=== PATIENT | female | born 2000 | race Caucasian/White ===

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

== ENCOUNTER 2019-12-17 11:55 | Emergency (ER) | payer SELFPAY ==
[2019-12-17 12:11] VITALS: BP 137/64
[2019-12-17 13:35] LABS: GLUCOSE, URINE (UA) NEGATIVE (NEGATIVE); KETONES,URINE (UA) TRACE mg/dL (NEGATIVE); LEUKOCYTE ESTERASE, URINE SMALL (NEGATIVE); NITRITE,URINE NEGATIVE (NEGATIVE); OCCULT BLOOD,URINE NEGATIVE (NEGATIVE); PROTEIN,URINE NEGATIVE (NEGATIVE); UROBILINOGEN,URINE 0.2 (NORMAL) E.U./dL (NORMAL)
[2019-12-17 13:39] LABS: CLARITY,URINE CLEAR (CLEAR)
[2019-12-17 13:42] LABS: BILIRUBIN,URINE NEGATIVE (NEGATIVE); HCG UR QUAL POSITIVE; ICTOTEST,URINE NEGATIVE
[2019-12-17 13:54] LABS: BACTERIA,URINE Few /HPF (None Seen); MUCUS,URINE Moderate Strands; RBC,URINE 0-5 /HPF (0-5); SQUAMOUS EPITHELIAL CELL,UR MOD Squamous (<= Few)
--- NOTE | 2019-12-17 14:20 | ED Physician Documentation ---
History of Present Illness - Stated complaint Stated Complaint: VOMITING/STOMACH PX - Chief complaint Chief Complaint: General - History obtained from History obtained from: Patient (This is a G0P now 1 with LMP of November 10 who has had intermittent mild cramping at night with nausea for the last couple of days. She had a couple of positive tests at home. Denies bleeding.) Review of Systems Constitutional: denies: Fever, Chills, Myalgias Throat: denies: Dental pain / toothache, Sore throat Cardiac: denies: Chest pain / pressure, Palpitations Respiratory: denies: Dyspnea, Cough GI: reports: Abdominal Pain PD PAST MEDICAL HISTORY - Past Medical History Past Medical History: No - Past Surgical History Past Surgical History: Yes HEENT: Tonsil/Adenoidectomy - Present Medications Home Medications: Ambulatory Orders Medication Instructions Recorded Confirmed No122/Iron/Folic Acid 1 each PO DAILY #90 tablet 12/17/19 [ Multi Tablet] - Allergies Allergies/Adverse Reactions: Allergies Allergy/AdvReac Type Severity Reaction Status Date / Time No Known Drug Allergies Allergy Verified 12/17/19 12:07 - Social History Does the pt smoke?: Yes Smoking Status: Current every day smoker Does the pt drink ETOH?: Yes Substance Use and Type: Marijuana - Immunizations Immunizations are current?: Yes PD ED PE NORMAL - Vitals Vital signs reviewed: Yes - General General: Alert and oriented X 3, No acute distress - HEENT HEENT: PERRL, EOMI - Abdomen Abdomen: Normal bowel sounds, Soft, Non tender - Female Female : Other (Bedside ultrasound is without obvious IUP, no free fluid.) - Neuro Neuro: Alert and oriented X 3, Normal speech Results - Vitals Vitals: Vital Signs - 24 hr 12/17/19 12:07 Temperature 36.7 C Heart Rate 77 Respiratory 15 Rate Blood Pressure 137/64 H O2 Saturation 98 Oxygen O2 Source Room air - Labs Labs: Laboratory Tests 12/17/19 13:17 Urine Color YELLOW Urine Clarity CLEAR Urine pH 6.0 Ur Specific [place] >=1.030 H Urine Protein NEGATIVE Urine Glucose (UA) NEGATIVE Urine Ketones TRACE Urine Occult Blood NEGATIVE Urine Nitrite NEGATIVE Urine Bilirubin NEGATIVE Urine Urobilinogen 0.2 (NORMAL) Ur Leukocyte Esterase SMALL H Urine RBC 0-5 Urine WBC 0-3 Ur Squamous Epith Cells MOD Squamous H Urine Bacteria Few Urine Mucus Moderate Strands Ur Microscopic Review INDICATED Urine Culture Comments NOT INDICATED Urine HCG, Qual POSITIVE PD MEDICAL DECISION MAKING - ED course ED course: 19-year-old woman presents to the emergency department mostly wondering if she is . She is had some mild cramping but nothing I would consider consistent with an ectopic. She was given advice on dietary changes for nausea and follow-up with OB and signs and symptoms that would necessitate an urgent reevaluation. Departure - Departure Disposition: 01 Home, Self Care Clinical Impression: Qualifiers: Weeks of gestation: less than 8 weeks Qualified Code(s): Z3A.01 - Less than 8 weeks gestation of Condition: Good Record reviewed to determine appropriate education?: Yes Instructions: ED Care Prescriptions: No122/Iron/Folic Acid [ Multi Tablet] 1 each PO DAILY #90 tablet Comments: If you develop severe cramping, bleeding, or other concerns please return for reevaluation.
== END 2019-12-17 14:24 | disposition home or self-care (01) ==
LOC: ED 11:55
DX: O21.0 Mild hyperemesis gravidarum (principal); O99.331 Smoking (tobacco) complicating pregnancy, first trimester; F17.200 Nicotine dependence, unspecified, uncomplicated; Z3A.01 Less than 8 weeks gestation of pregnancy
CPT/HCPCS: 81001; 81003; 81025; 87086; 99283

== ENCOUNTER 2020-01-05 12:22 | Outpatient (CLI) | payer OTHER ==
[2020-01-05 15:00] LABS: BILIRUBIN,URINE NEGATIVE (NEGATIVE); GLUCOSE, URINE (UA) NEGATIVE (NEGATIVE); KETONES,URINE (UA) NEGATIVE (NEGATIVE); LEUKOCYTE ESTERASE, URINE TRACE (NEGATIVE); NITRITE,URINE NEGATIVE (NEGATIVE); OCCULT BLOOD,URINE NEGATIVE (NEGATIVE); PROTEIN,URINE NEGATIVE (NEGATIVE); UROBILINOGEN,URINE 0.2 (NORMAL) E.U./dL (NORMAL)
[2020-01-05 15:08] LABS: CLARITY,URINE CLEAR (CLEAR)
[2020-01-05 15:29] LABS: AMORPHOUS SEDIMENT,UR Marked /LPF; BACTERIA,URINE Rare /HPF (None Seen); RBC,URINE 0-5 /HPF (0-5); SQUAMOUS EPITHELIAL CELL,UR FEW Squamous (<= Few)
[2020-01-05 20:52] LABS: TRICHOMONAS VAGINALIS DNA NEGATIVE (NEGATIVE)
== END 2020-01-05 23:59 | disposition home or self-care (01) ==
LOC: LAB.R 12:22
PROVIDERS: ATTEND Registered Nurse
DX: Z34.90 Encounter for supervision of normal pregnancy, unspecified, unspecified trimester (principal)
CPT/HCPCS: 81001; 81003; 87086; 87491; 87591; 87661

== ENCOUNTER 2020-01-07 14:13 | Emergency (ER) | payer OTHER ==
[2020-01-07 15:12] LABS: BILIRUBIN,URINE NEGATIVE (NEGATIVE); GLUCOSE, URINE (UA) NEGATIVE (NEGATIVE); KETONES,URINE (UA) TRACE mg/dL (NEGATIVE); LEUKOCYTE ESTERASE, URINE LARGE (NEGATIVE); NITRITE,URINE NEGATIVE (NEGATIVE); OCCULT BLOOD,URINE NEGATIVE (NEGATIVE); PH,URINE 5.5 PH (5.0-7.5); PROTEIN,URINE NEGATIVE (NEGATIVE); UROBILINOGEN,URINE 0.2 (NORMAL) E.U./dL (NORMAL)
[2020-01-07 15:13] LABS: CLARITY,URINE HAZY (CLEAR)
[2020-01-07 15:13] LABS: BASOPHILS % (AUTO) 0.4 %; EOSINOPHILS % (AUTO) 0.4 %; HGB - HEMOGLOBIN 11.8 g/dL (12.0-16.0); LYMPHOCYTES # (AUTO) 1.7 10^3/uL (1.5-3.5); LYMPHOCYTES % (AUTO) 14.8 %; MEAN CORPUSCULAR HEMOGLOBIN 29.7 pg (27.0-31.0); MEAN CORPUSCULAR HGB CONC 33.4 g/dL (32.0-36.0); MEAN CORPUSCULAR VOLUME 88.9 fL (81.0-99.0); MEAN PLATELET VOLUME 10.3 fL (7.9-10.8); MONOCYTES # (AUTO) 0.9 10^3/uL (0.0-1.0); MONOCYTES % (AUTO) 8.1 %; NEUTROPHILS # (AUTO) 8.6 10^3/uL (1.5-6.6); NEUTROPHILS % (AUTO) 75.9 %; PLT - PLATELET COUNT 357 10^3/uL (130-450); RED BLOOD COUNT 3.97 10^6/uL (4.20-5.40); RED CELL DISTRIBUTION WIDTH 15.1 % (12.0-15.0); WHITE BLOOD COUNT 11.3 x10^3/uL (4.8-10.8)
[2020-01-07 15:26] LABS: ALBUMIN 4.2 g/dL (3.2-5.5); ALBUMIN/GLOBULIN RATIO 1.2 (1.0-2.2); BILIRUBIN,TOTAL 0.8 mg/dL (0.2-1.0); CALCIUM 9.7 mg/dL (8.5-10.3); CREATININE 0.6 mg/dL (0.4-1.0); TOTAL PROTEIN 7.8 g/dL (6.7-8.2)
[2020-01-07 15:28] LABS: AMORPHOUS SEDIMENT,UR Few /LPF; BACTERIA,URINE Moderate /HPF (None Seen); RBC,URINE 0-5 /HPF (0-5); SQUAMOUS EPITHELIAL CELL,UR FEW Squamous (<= Few)
--- NOTE | 2020-01-07 15:36 | ED Physician Documentation ---
History of Present Illness - Stated complaint Stated Complaint: FEMALE /8WK OB - Chief complaint Chief Complaint: Abd Pain - History obtained from History obtained from: Patient - History of Present Illness Timing: How many days ago (3) Pain level max: 3 Pain level now: 2 - Additonal information Additional information: 19-year-old female, 1 para 0 presents to the emergency department stating that she is approximately 2 weeks . She states she started having vaginal spotting yesterday and today. Along with abdominal cramping. Nothing makes it better or worse. No vaginal discharge other than the bleeding. No fevers. No cough. Review of Systems Ten Systems: 10 systems reviewed and negative Constitutional: denies: Fever, Chills Throat: denies: Sore throat Cardiac: denies: Chest pain / pressure Respiratory: denies: Cough GI: denies: Vomiting, Diarrhea Skin: denies: Rash Musculoskeletal: denies: Neck pain, Back pain Neurologic: denies: Headache PD PAST MEDICAL HISTORY - Past Medical History Past Medical History: No - Past Surgical History Past Surgical History: Yes HEENT: Tonsil/Adenoidectomy - Present Medications Home Medications: Ambulatory Orders Medication Instructions Recorded Confirmed No122/Iron/Folic Acid 1 each PO DAILY #90 tablet 12/17/19 01/07/20 [ Multi Tablet] Nitrofurantoin Monohyd/M-Cryst 100 mg PO BID #10 capsule 01/07/20 [Macrobid 100 mg Capsule] - Allergies Allergies/Adverse Reactions: Allergies Allergy/AdvReac Type Severity Reaction Status Date / Time No Known Drug Allergies Allergy Verified 01/07/20 14:31 - Living Situation Living Situation: reports: With family Living Arrangement: reports: Shelter - Social History Does the pt smoke?: Yes Smoking Status: Current every day smoker Does the pt drink ETOH?: Yes - Immunizations Immunizations are current?: Yes PD ED PE NORMAL - Vitals Vital signs reviewed: Yes - General General: Alert and oriented X 3, No acute distress, Well developed/nourished - HEENT HEENT: PERRL, Moist mucous membranes - Neck Neck: Supple, no meningeal sign - Cardiac Cardiac: RRR, Strong equal pulses - Respiratory Respiratory: No respiratory distress, Clear bilaterally - Abdomen Abdomen: Soft, Non tender, Non distended - Female Female : Pt declined - Derm Derm: Warm and dry, No rash - Extremities Extremities: No edema - Neuro Neuro: Alert and oriented X 3 - Psych Psych: Normal mood, Normal affect Results - Vitals Vitals: Vital Signs - 24 hr 01/07/20 01/07/20 14:18 17:05 Temperature 36.8 C Heart Rate 64 72 Respiratory 18 18 Rate Blood Pressure 136/83 H 116/58 L O2 Saturation 99 99 Oxygen O2 Source Room air - Labs Labs: Laboratory Tests 01/07/20 01/07/20 01/07/20 14:40 14:55 14:55 WBC 11.3 H RBC 3.97 L Hgb 11.8 L Hct 35.3 L MCV 88.9 MCH 29.7 MCHC 33.4 RDW 15.1 H Plt Count 357 MPV 10.3 Neut # (Auto) 8.6 H Lymph # (Auto) 1.7 [place] # (Auto) 0.9 Eos # (Auto) 0.0 Baso # (Auto) 0.0 Absolute Nucleated RBC 0.00 Nucleated RBC % 0.0 Sodium 135 Potassium 3.9 Chloride 101 Carbon Dioxide 24 Anion Gap 10.0 BUN 11 Creatinine 0.6 Estimated GFR (MDRD) 127 Glucose 82 Calcium 9.7 Total Bilirubin 0.8 AST 14 ALT 12 Alkaline Phosphatase 45 Total Protein 7.8 Albumin 4.2 Globulin 3.6 Albumin/Globulin Ratio 1.2 Lipase 27 HCG, Quant Urine Color YELLOW Urine Clarity HAZY Urine pH 5.5 Ur Specific [place] 1.020 Urine Protein NEGATIVE Urine Glucose (UA) NEGATIVE Urine Ketones TRACE Urine Occult Blood NEGATIVE Urine Nitrite NEGATIVE Urine Bilirubin NEGATIVE Urine Urobilinogen 0.2 (NORMAL) Ur Leukocyte Esterase LARGE H Urine RBC 0-5 Urine WBC 6-10 H Ur Squamous Epith Cells FEW Squamous Amorphous Sediment Few Urine Bacteria Moderate H Ur Microscopic Review INDICATED Urine Culture Comments INDICATED Blood Type 01/07/20 01/07/20 14:55 14:55 WBC RBC Hgb Hct MCV MCH MCHC RDW Plt Count MPV Neut # (Auto) Lymph # (Auto) [place] # (Auto) Eos # (Auto) Baso # (Auto) Absolute Nucleated RBC Nucleated RBC % Sodium Potassium Chloride Carbon Dioxide Anion Gap BUN Creatinine Estimated GFR (MDRD) Glucose Calcium Total Bilirubin AST ALT Alkaline Phosphatase Total Protein Albumin Globulin Albumin/Globulin Ratio Lipase HCG, Quant 359051.00 Urine Color Urine Clarity Urine pH Ur Specific [place] Urine Protein Urine Glucose (UA) Urine Ketones Urine Occult Blood Urine Nitrite Urine Bilirubin Urine Urobilinogen Ur Leukocyte Esterase Urine RBC Urine WBC Ur Squamous Epith Cells Amorphous Sediment Urine Bacteria Ur Microscopic Review Urine Culture Comments Blood Type A POSITIVE - Rads (name of study) OB ultrasound Radiology: Prelim report reviewed, EMP read contemporaneously, See rad report (1. Single viable intrauterine at EGA 8 weeks 2 days with LEYLA 08/16/2020 based on crown-rump length ) PD MEDICAL DECISION MAKING - ED course Complexity details: reviewed results, re-evaluated patient, considered differential, d/w patient ED course: Patient with vaginal bleeding in early . Single viable IUP visible on ultrasound. We will treat for UTI. We will have her follow-up with OB for further care. No evidence of ectopic. Patient counseled regarding signs and symptoms for which I believe and urgent re-evaluation would be necessary. Patient with good understanding of and agreement to plan and is comfortable going home at this time This document was made in part using voice recognition software. While efforts are made to proofread this document, sound alike and grammatical errors may occur. Departure - Departure Disposition: 01 Home, Self Care Clinical Impression: Vaginal bleeding during Urinary tract infection Qualifiers: Urinary tract infection type: acute cystitis Hematuria presence: without hematuria Qualified Code(s): N30.00 - Acute cystitis without hematuria Condition: Good Instructions: ED Miscarriage Poss, ED UTI Cystitis Female Follow-Up: your,doctor in 3 days for repeat HCG. [Other] Prescriptions: Nitrofurantoin Monohyd/M-Cryst [Macrobid 100 mg Capsule] 100 mg PO BID #10 capsule Comments: Follow-up with your doctor next week for further care and a repeat hCG. Her hCG is approximately 169,000 today. Your ultrasound shows a live intrauterine with a good heartbeat. Take all antibiotics until gone for your UTI. Discharge Date/Time: 01/07/20 17:05
--- NOTE | 2020-01-07 16:29 | Ultrasound Report ---
Reason: 8 weeks EGA, VB Procedure Date: 01/07/2020 Accession Number: [id number] / [id number] Procedure: US - OB First Trimester CPT Code: Final Report FULL RESULT: EXAM: FIRST TRIMESTER OBSTETRIC ULTRASOUND (Less than 11 weeks) EXAM DATE: 01/07/2020 03:41 PM. CLINICAL HISTORY: 8 weeks EGA, VB. LMP: Unknown. COMPARISONS: None. TECHNIQUE: Transabdominal and transvaginal ultrasound examination with static image documentation. CLINICAL DATES: Unknown ASSESSMENT: Gestational Sac: Single intrauterine. Mean gestational sac diameter: 29 mm = 8 weeks 0 days. Embryo: CRL (crown-rump length) 18 mm = 8 weeks 2 days. Cardiac activity: 179 beats per minute. Yolk sac: 4 mm. Amniotic fluid: Not accurately assessed at this gestational age. Early placenta: Not visible at this gestational age. Other: No perigestational fluid collection demonstrated. MATERNAL STRUCTURES: Uterus: Anteverted . Unremarkable. Cervix: Closed. Right Ovary/Adnexa: The ovary measures 3.4 x 1.3 x 2.9 cm, volume 6.7 cc. 1.7 x 1.4 x 2.3 cm corpus luteal cyst. Left Ovary/Adnexa: The ovary measures 2.4 x 2.7 x 2.6 cm, volume 8.5 cc. 1.2 x 1 x 1.1 cm cyst Free Fluid: None. Other: None. IMPRESSION: 1. Single viable intrauterine at EGA 8 weeks 2 days with LEYLA 08/16/2020 based on crown-rump length RADIA
[2020-01-07] MEDS ORDERED: NITROFURANTOIN MACRO 100 MG CAPSULE PO STA (16:34)
[2020-01-07 17:06] VITALS: BP 116/58
== END 2020-01-07 17:05 | disposition home or self-care (01) ==
LOC: ED 14:13
DX: O20.9 Hemorrhage in early pregnancy, unspecified (principal); O23.11 Infections of bladder in pregnancy, first trimester; O99.331 Smoking (tobacco) complicating pregnancy, first trimester; Z3A.08 8 weeks gestation of pregnancy
CPT/HCPCS: 36415; 76801; 80053; 81001; 83690; 84702; 85025; 86900; 86901; 87086; 99284; A9270; 81003

== ENCOUNTER 2020-01-12 13:25 | Outpatient (CLI) | payer OTHER ==
[2020-01-12 14:43] LABS: HCG,QUALITATIVE BLOOD POSITIVE
== END 2020-01-12 23:59 | disposition home or self-care (01) ==
LOC: LAB.R 13:25
PROVIDERS: ATTEND Registered Nurse
DX: Z34.90 Encounter for supervision of normal pregnancy, unspecified, unspecified trimester (principal)
CPT/HCPCS: 84702; 84703

== ENCOUNTER 2020-01-16 09:30 | Outpatient (CLI) | payer OTHER | END 2020-01-16 23:59 | disposition home or self-care (01) | LOC: LAB.R 09:30 | PROVIDERS: ATTEND Registered Nurse | DX: O26.859 Spotting complicating pregnancy, unspecified trimester (principal) | CPT/HCPCS: 84702 ==

== ENCOUNTER 2020-02-21 13:40 | Emergency (ER) | payer MEDICAID ==
[2020-02-21 14:08] LABS: BASOPHILS % (AUTO) 0.2 %; EOSINOPHILS % (AUTO) 0.3 %; HGB - HEMOGLOBIN 11.3 g/dL (12.0-16.0); LYMPHOCYTES # (AUTO) 1.5 10^3/uL (1.5-3.5); LYMPHOCYTES % (AUTO) 13.1 %; MEAN CORPUSCULAR HEMOGLOBIN 30.5 pg (27.0-31.0); MEAN CORPUSCULAR HGB CONC 33.6 g/dL (32.0-36.0); MEAN CORPUSCULAR VOLUME 90.8 fL (81.0-99.0); MONOCYTES # (AUTO) 0.8 10^3/uL (0.0-1.0); MONOCYTES % (AUTO) 6.7 %; NEUTROPHILS # (AUTO) 9.2 10^3/uL (1.5-6.6); NEUTROPHILS % (AUTO) 79.3 %; PLT - PLATELET COUNT 309 10^3/uL (130-450); RED CELL DISTRIBUTION WIDTH 14.7 % (12.0-15.0); WHITE BLOOD COUNT 11.7 x10^3/uL (4.8-10.8)
[2020-02-21 14:26] LABS: ALBUMIN 3.7 g/dL (3.2-5.5); ALBUMIN/GLOBULIN RATIO 1.1 (1.0-2.2); BILIRUBIN,TOTAL 0.5 mg/dL (0.2-1.0); CALCIUM 9.4 mg/dL (8.5-10.3); CREATININE 0.5 mg/dL (0.4-1.0); TOTAL PROTEIN 7.1 g/dL (6.7-8.2)
[2020-02-21 15:11] LABS: BILIRUBIN,URINE NEGATIVE (NEGATIVE); GLUCOSE, URINE (UA) NEGATIVE (NEGATIVE); KETONES,URINE (UA) NEGATIVE (NEGATIVE); LEUKOCYTE ESTERASE, URINE SMALL (NEGATIVE); NITRITE,URINE NEGATIVE (NEGATIVE); OCCULT BLOOD,URINE NEGATIVE (NEGATIVE); PROTEIN,URINE NEGATIVE (NEGATIVE); UROBILINOGEN,URINE 0.2 (NORMAL) E.U./dL (NORMAL)
[2020-02-21 15:29] LABS: CLARITY,URINE CLEAR (CLEAR)
[2020-02-21 15:30] LABS: AMORPHOUS SEDIMENT,UR Marked /LPF; BACTERIA,URINE None Seen /HPF (None Seen); RBC,URINE None Seen /HPF (0-5); SQUAMOUS EPITHELIAL CELL,UR MOD Squamous (<= Few)
--- NOTE | 2020-02-21 16:36 | Ultrasound Report ---
PROCEDURE: OB Limited INDICATIONS: pelvic pain, viability, 14 weeks OUTSIDE/PRIOR DATING DATA: Last menstrual period (LMP): Not known. LMP-based estimated date of delivery (LEYLA): Not applicable. First dating scan (date and location): 01/07/2020. Estimated date of delivery (LEYLA) from first dating scan: 08/16/2020. TECHNIQUE: Real-time scanning was performed of the fetus, with image documentation. COMPARISON: None. FINDINGS: A single living intrauterine gestation is present. Presentation: Cephalic Placenta: Placental position is posterior, without previa. Amniotic fluid index: 9.1 cm, 5-24 cm normal. heart rate: 152 beats per minutes. Maternal cervical canal: 4.0 cm long; normal length is 2.5 cm or more. Estimated gestational age from initial scan: 14 weeks 5 days. Estimated gestational age from present scan: 15 weeks 1 day. Biparietal diameter: 15 weeks 4 days Head circumference 15 weeks 1 day Abdominal circumference 15 weeks 2 days Femur length 14 weeks 4 days IMPRESSION: 1. Single living intrauterine with appropriate interval growth. 2. Normal amniotic fluid index. Reviewed by: Ro Galeana MD, PhD on 02/21/2020 4:35 PM PDT Approved by: Ro Galenaa MD, PhD on 02/21/2020 4:35 PM PDT Station ID: [id number]
[2020-02-21 16:57] VITALS: BP 102/59
[2020-02-21 22:15] LABS: TRICHOMONAS VAGINALIS DNA NEGATIVE (NEGATIVE)
== END 2020-02-21 17:42 | disposition left against medical advice (07) ==
LOC: ED 13:40
DX: Z53.21 Procedure and treatment not carried out due to patient leaving prior to being seen by health care provider (principal)
CPT/HCPCS: 36415; 76815; 80053; 81001; 83690; 84702; 85025; 87086; 87491; 87591; 87661; 87801

== ENCOUNTER 2020-04-04 07:00 | Outpatient (CLI) | payer MEDICAID ==
[2020-04-04 15:47] LABS: MUDS CUTOFF CONCENTRATIONS CUTOFF CONC BELOW:
[2020-04-04 16:21] LABS: AMPHETAMINE SCREEN,URINE NEGATIVE (NEGATIVE); BENZODIAZEPINES SCREEN, URINE NEGATIVE (NEGATIVE); COCAINE SCREEN URINE NEGATIVE (NEGATIVE); METHADONE SCREEN, URINE NEGATIVE (NEGATIVE); METHAMPHETAMINES SCREEN, URINE NEGATIVE (NEGATIVE); OPIATE SCREEN, URINE NEGATIVE (NEGATIVE); OXYCODONE SCREEN, URINE NEGATIVE (NEGATIVE); PROPOXYPHENE SCREEN, URINE NEGATIVE (NEGATIVE); TRICYCLIC ANTIDEPRESSANT,URINE NEGATIVE (NEGATIVE)
== END 2020-04-04 23:59 | disposition home or self-care (01) ==
LOC: LAB.R 07:00
PROVIDERS: ATTEND Advanced Practice Midwife
DX: Z36.89 Encounter for other specified antenatal screening (principal); O09.70 Supervision of high risk pregnancy due to social problems, unspecified trimester
CPT/HCPCS: 36415; 80306; 81599; 85025; 86592; 86762; 86787; 86803; 86850; 86900; 86901; 87340; 87389

== ENCOUNTER 2020-04-04 10:54 | Outpatient (CLI) | payer MEDICAID ==
[2020-04-04 11:16] LABS: BASOPHILS % (AUTO) 0.2 %; EOSINOPHILS % (AUTO) 0.4 %; LYMPHOCYTES # (AUTO) 1.5 10^3/uL (1.5-3.5); LYMPHOCYTES % (AUTO) 15.1 %; MEAN CORPUSCULAR HEMOGLOBIN 30.7 pg (27.0-31.0); MEAN CORPUSCULAR HGB CONC 33.2 g/dL (32.0-36.0); MEAN CORPUSCULAR VOLUME 92.3 fL (81.0-99.0); MEAN PLATELET VOLUME 10.5 fL (7.9-10.8); MONOCYTES # (AUTO) 0.6 10^3/uL (0.0-1.0); MONOCYTES % (AUTO) 5.7 %; NEUTROPHILS # (AUTO) 7.7 10^3/uL (1.5-6.6); NEUTROPHILS % (AUTO) 78.1 %; PLT - PLATELET COUNT 294 10^3/uL (130-450); RED BLOOD COUNT 3.26 10^6/uL (4.20-5.40); RED CELL DISTRIBUTION WIDTH 13.3 % (12.0-15.0); WHITE BLOOD COUNT 9.9 x10^3/uL (4.8-10.8)
[2020-04-05 09:21] LABS: HIV AG/AB 4TH GEN NON-REACTIVE (NON-REACTIVE)
[2020-04-05 14:51] LABS: HEPATITIS B SURFACE ANTIGEN NON-REACTIVE (NON-REACTIVE); HEPATITIS C ANTIBODY NON-REACTIVE (NON-REACTIVE)
== END 2020-04-04 10:55 | disposition home or self-care (01) ==
LOC: LAB 10:54
PROVIDERS: ATTEND Advanced Practice Midwife
DX: Z36.89 Encounter for other specified antenatal screening (principal); O09.70 Supervision of high risk pregnancy due to social problems, unspecified trimester
CPT/HCPCS: 36415; 81599; 85025; 86762; 86787; 86803; 86850; 86900; 86901; 87340; 87389

== ENCOUNTER 2020-06-28 08:00 | Outpatient (CLI) | payer MEDICAID ==
[2020-06-28 12:15] LABS: MEAN CORPUSCULAR HEMOGLOBIN 29.9 pg (27.0-31.0); MEAN CORPUSCULAR HGB CONC 33.1 g/dL (32.0-36.0); MEAN CORPUSCULAR VOLUME 90.3 fL (81.0-99.0); MEAN PLATELET VOLUME 10.2 fL (7.9-10.8); RED BLOOD COUNT 2.68 10^6/uL (4.20-5.40); RED CELL DISTRIBUTION WIDTH 14.6 % (12.0-15.0); WHITE BLOOD COUNT 7.2 x10^3/uL (4.8-10.8)
== END 2020-06-28 23:59 | disposition home or self-care (01) ==
LOC: LAB 08:00
PROVIDERS: ATTEND Nurse Practitioner Obstetrics & Gynecology
DX: Z36.89 Encounter for other specified antenatal screening (principal)
CPT/HCPCS: 36415; 82950; 85027

== ENCOUNTER 2020-07-18 09:20 | Outpatient (CLI) | payer MEDICAID ==
[2020-07-18] MEDS ORDERED: FERRIC GLUCONATE 125 MG in SODIUM CHLORIDE 0.9% 100ML 100 ML IV SCH (09:29)
[2020-07-18 09:48] VITALS: BP 113/60
== END 2020-07-18 11:20 | disposition home or self-care (01) ==
LOC: WFO 09:20 → FBP 09:23 → WFO 11:20
PROVIDERS: ATTEND Nurse Practitioner Obstetrics & Gynecology
DX: O99.019 Anemia complicating pregnancy, unspecified trimester (principal); D64.9 Anemia, unspecified; Z3A.00 Weeks of gestation of pregnancy not specified
CPT/HCPCS: 96374; J2916

== ENCOUNTER 2020-07-25 11:30 | Outpatient (CLI) | payer MEDICAID ==
[2020-07-25 23:01] LABS: TRICHOMONAS VAGINALIS DNA NEGATIVE (NEGATIVE)
== END 2020-07-25 23:59 | disposition home or self-care (01) ==
LOC: LAB.R 11:30
PROVIDERS: ATTEND Obstetrics & Gynecology
DX: O09.70 Supervision of high risk pregnancy due to social problems, unspecified trimester (principal); Z3A.00 Weeks of gestation of pregnancy not specified
CPT/HCPCS: 87491; 87591; 87661; 87797

== ENCOUNTER 2020-07-25 11:38 | Outpatient (CLI) | payer MEDICAID ==
[2020-07-25 12:17] VITALS: BP 116/71
[2020-07-25 12:21] LABS: BASOPHILS % (AUTO) 0.5 %; EOSINOPHILS % (AUTO) 0.6 %; HGB - HEMOGLOBIN 8.6 g/dL (12.0-16.0); LYMPHOCYTES # (AUTO) 1.3 10^3/uL (1.5-3.5); LYMPHOCYTES % (AUTO) 20.8 %; MEAN CORPUSCULAR HEMOGLOBIN 27.3 pg (27.0-31.0); MEAN CORPUSCULAR HGB CONC 31.6 g/dL (32.0-36.0); MEAN CORPUSCULAR VOLUME 86.3 fL (81.0-99.0); MEAN PLATELET VOLUME 11.4 fL (7.9-10.8); MONOCYTES # (AUTO) 0.7 10^3/uL (0.0-1.0); NEUTROPHILS # (AUTO) 4.1 10^3/uL (1.5-6.6); NEUTROPHILS % (AUTO) 66.6 %; PLT - PLATELET COUNT 266 10^3/uL (130-450); RED BLOOD COUNT 3.15 10^6/uL (4.20-5.40); RED CELL DISTRIBUTION WIDTH 16.1 % (12.0-15.0); WHITE BLOOD COUNT 6.2 x10^3/uL (4.8-10.8)
[2020-07-25] MEDS ORDERED: FERRIC GLUCONATE 125 MG in SODIUM CHLORIDE 0.9% 100ML 100 ML IV ONE (12:30)
--- NOTE | 2020-07-25 14:52 | Labor Flowsheet ---
Labor Flowsheet Datetime Report Generated by CPN: 07/25/2020 14:51 Datetime: 07/25/2020 12:15 VITAL SIGNS NBP Sys/Rosio/Mean (mmHg): 134 : 81 : 94 Pulse: 96
== END 2020-07-25 13:45 | disposition home or self-care (01) ==
LOC: WFO 11:38 → FBP 11:43 → WFO 13:45
PROVIDERS: ATTEND Obstetrics & Gynecology
DX: O99.013 Anemia complicating pregnancy, third trimester (principal); D64.9 Anemia, unspecified; Z3A.00 Weeks of gestation of pregnancy not specified
CPT/HCPCS: 85025; 96374; J2916

== ENCOUNTER 2020-08-01 09:43 | Outpatient (CLI) | payer MEDICAID ==
[2020-08-01] MEDS ORDERED: FERRIC GLUCONATE 125 MG in SODIUM CHLORIDE 0.9% 100ML 100 ML IV ONE (10:30)
[2020-08-01 11:51] LABS: BASOPHILS % (AUTO) 0.3 %; EOSINOPHILS # (AUTO) 0.1 10^3/uL (0.0-0.7); EOSINOPHILS % (AUTO) 0.8 %; HGB - HEMOGLOBIN 8.3 g/dL (12.0-16.0); LYMPHOCYTES # (AUTO) 1.3 10^3/uL (1.5-3.5); LYMPHOCYTES % (AUTO) 21.8 %; MEAN CORPUSCULAR HEMOGLOBIN 28.2 pg (27.0-31.0); MEAN CORPUSCULAR HGB CONC 31.3 g/dL (32.0-36.0); MEAN CORPUSCULAR VOLUME 90.1 fL (81.0-99.0); MEAN PLATELET VOLUME 11.3 fL (7.9-10.8); MONOCYTES # (AUTO) 0.7 10^3/uL (0.0-1.0); MONOCYTES % (AUTO) 10.8 %; NEUTROPHILS % (AUTO) 65.6 %; PLT - PLATELET COUNT 178 10^3/uL (130-450); RED BLOOD COUNT 2.94 10^6/uL (4.20-5.40); RED CELL DISTRIBUTION WIDTH 17.2 % (12.0-15.0)
[2020-08-01 12:38] VITALS: BP 109/65
== END 2020-08-01 12:00 | disposition home or self-care (01) ==
LOC: WFO 09:43 → FBP 09:44 → WFO 12:00
PROVIDERS: ATTEND Advanced Practice Midwife
DX: O99.019 Anemia complicating pregnancy, unspecified trimester (principal); D64.9 Anemia, unspecified; Z3A.00 Weeks of gestation of pregnancy not specified
CPT/HCPCS: 36415; 85025; 96365; J2916

== ENCOUNTER 2020-08-08 10:53 | Outpatient (CLI) | payer MEDICAID ==
[2020-08-08 11:28] VITALS: BP 104/58
[2020-08-08] MEDS ORDERED: FERRIC GLUCONATE 125 MG in SODIUM CHLORIDE 0.9% 100ML 100 ML IV SCH (12:00)
== END 2020-08-08 12:58 | disposition home or self-care (01) ==
LOC: WFO 10:53 → FBP 10:54 → WFO 12:58
PROVIDERS: ATTEND Nurse Practitioner Obstetrics & Gynecology
DX: O99.019 Anemia complicating pregnancy, unspecified trimester (principal); D64.9 Anemia, unspecified; Z3A.00 Weeks of gestation of pregnancy not specified
CPT/HCPCS: 96365; J2916

== ENCOUNTER 2020-08-15 12:24 | Outpatient (CLI) | payer MEDICAID ==
[2020-08-15 12:46] VITALS: BP 132/82
[2020-08-15] MEDS ORDERED: FERRIC GLUCONATE 125 MG in SODIUM CHLORIDE 0.9% 100ML 100 ML IV ONE (13:00)
--- OUTSIDE RECORDS SUMMARY | 2020-08-23 00:16 | EXTERNAL MEDICAL SUMMARY RPT | Continuity of Care Document ---
:2000 Demographics Phone Unavailable Preferred Language Latvian Marital Status Unknown Latter Day Affiliation Unknown Race Unknown Ethnic Group Unknown Author Organization [facility] Address [address] [place] [address] Phone Care Team Providers Name Role Phone I&C TECHNICIAN Unavailable Unavailable Problems date description facility 2020-02-21 13:40 PROC/TRTMT NOT CRD OUT D/T PT [facility]F SEEN BY [facility] 2020-04-04 07:00 SUPRVSN OF HIGH RISK PREG DUE [facility] TO SOCIAL PROBLEMS, UNSP TRI 2020-04-04 07:00 ENCOUNTER FOR OTHER SPECIFIED [facility] SCREENING 2020-04-04 10:54 SUPRVSN OF HIGH RISK PREG DUE [facility] TO SOCIAL PROBLEMS, UNSP TRI 2020-04-04 10:54 ENCOUNTER FOR OTHER SPECIFIED [facility] SCREENING 2020-05-10 07:44 SUPRVSN OF HIGH RISK PREG DUE [facility] TO SOCIAL PROBLEMS, SECOND TRI 2020-05-10 07:44 24 WEEKS GESTATION OF [facility] 2020-06-12 00:00:00 [facility] 2020-06-12 00:00:00 [facility] 2020-06-12 00:00:00 Details of [facility] 2020-06-12 00:00:00 [facility] 2020-06-12 00:00:00 Tobacco smoking status NHIS [facility] 2020-06-12 00:00:00 Total score? [facility] 2020-06-12 00:00:00 Former smoker [facility] 2020-06-28 00:00:00 Health-related behavior [facility] 2020-06-28 00:00:00 Tobacco use and exposure [facility] 2020-06-28 00:00:00 Details of drug misuse [facility] behavior [facility] 2020-06-28 00:00:00 Alcohol use [facility] 2020-06-28 00:00:00 Tobacco smoking status NHIS [facility] 2020-06-28 00:00:00 Total score? [facility] 2020-06-28 00:00:00 Former smoker [facility] 2020-06-29 00:00:00 Iron & TIBC [facility] 2020-07-18 00:00:00 [facility]terine size date discrepancy, [facility] ante[facility] condition or [facility] complication 2020-07-18 00:00:00 US OB LIMITED [facility] 2020-07-18 00:00:00 [facility]terine size-date discrepancy, [facility] third trimester [facility] 2020-07-18 00:00:00 [facility] 2020-07-18 00:00:00 Tobacco use and exposure [facility] 2020-07-18 00:00:00 Details of drug misuse [facility] behavior [facility] 2020-07-18 00:00:00 [facility]terine size for [facility] discrepancy [facility] 2020-07-18 00:00:00 Alcohol use [facility] 2020-07-18 00:00:00 Tobacco smoking status NHIS [facility] 2020-07-18 00:00:00 Total score? [facility] 2020-07-18 00:00:00 Former smoker [facility] 2020-07-24 00:00:00 OB US FOLLOW-UP [facility] 2020-07-25 00:00 SUPRVSN OF HIGH RISK PREG DUE [facility] TO SOCIAL PROBLEMS, UNSP TRI 2020-07-25 00:00:00 Iron & TIBC [facility] 2020-07-25 00:00:00 CHLAM, NEISSERIA, TRICH DNA [facility] 2020-07-25 00:00:00 Ferritin [facility] 2020-07-25 00:00:00 CBC AND PLATELETS w/o DIFF [facility] 2020-07-25 00:00:00 GBSPCR,REFLEX IF PEN ALLERGIC [facility] 2020-07-25 00:00:00 [facility] 2020-07-25 00:00:00 Tobacco use and exposure [facility] 2020-07-25 00:00:00 Details of drug misuse [facility] behavior RHC 2020-07-25 00:00:00 Alcohol use [facility] 2020-07-25 00:00:00 Tobacco smoking status NHIS [facility] 2020-07-25 00:00:00 Total score? [facility] 2020-07-25 00:00:00 Former smoker [facility] 2020-07-25 11:30 SUPRVSN OF HIGH RISK PREG DUE [facility] TO SOCIAL PROBLEMS, UNSP TRI 2020-08-01 00:00:00 CBC AND PLATELETS w/o DIFF [facility] 2020-08-01 00:00:00 Health-related behavior [facility] 2020-08-01 00:00:00 Tobacco use and exposure [facility] 2020-08-01 00:00:00 Details of drug misuse [facility] behavior [facility] 2020-08-01 00:00:00 Alcohol use [facility] 2020-08-01 00:00:00 Tobacco smoking status NHIS [facility] 2020-08-01 00:00:00 Total score? [facility] 2020-08-01 00:00:00 Former smoker [facility] 2020-08-08 00:00:00 Health-related behavior [facility] 2020-08-08 00:00:00 Tobacco use and exposure [facility] 2020-08-08 00:00:00 Details of drug misuse [facility] behavior RHC 2020-08-08 00:00:00 Alcohol use [facility] 2020-08-08 00:00:00 Tobacco smoking status NHIS [facility] 2020-08-08 00:00:00 Total score? [facility] 2020-08-08 00:00:00 Former smoker [facility] 2020-08-15 00:00:00 Health-related behavior [facility] 2020-08-15 00:00:00 Tobacco use and exposure [facility] 2020-08-15 00:00:00 Details of drug misuse [facility] behavior RHC 2020-08-15 00:00:00 [facility] 2020-08-15 00:00:00 Tobacco [facility] status [facility] 2020-08-15 00:00:00 Total score? [facility] 2020-08-15 00:00:00 [facility] Allergies date description facility ADHESIVE \T\ T[facility] APIXABAN [facility] CODEINE [facility] IRON [facility] LEVOFLOXACIN [facility] LISINOPRIL [facility] SPIRONOLACTONE [facility] SULFAMETHOXAZOLE W/TRIMETHOPRIM [facility] (CO-TRIMOXAZOLE) TEMAZEPAM [facility] [id number] [facility] ANTIHISTAMINES, LORATADINE-TYPE [facility] NO KNOWN ENVIRONMENTAL ALLERGIES [facility] SULFA ANTIBIOTICS [facility] NO ALLERGY INFORMATION ON FILE [facility] NO KNOWN ALLERGIES [facility] LATEX, NATURAL RUBBER [facility] COCONUT OIL [facility] MORPHINE [facility] CODEINE [facility] MEPERIDINE [facility] HYDROMORPHONE [facility] MELATONIN [facility] ALENDRONATE [facility] OXYCODONE-ASPIRIN [facility] No Known Drug Allergies [facility] Medications date description facility 2020-06-12 00:00:00 null [facility] 2020-06-12 00:00:00 null [facility] 2020-06-12 00:00:00 [facility]ISC. DEVICES [facility] 2020-06-12 00:00:00 null [facility] 2020-06-12 00:00:00 null [facility] 2020-06-12 00:00:00 null [facility] 2020-06-12 00:00:00 null [facility] 2020-06-29 00:00:00 null [facility] 2020-06-29 00:00:00 null [facility] 2020-06-29 00:00:00 FERROUS SULFATE [facility] 2020-06-29 00:00:00 FERROUS SULFATE [facility] Procedures date description facility 2020-06-12 00:00:00 [id number] - SUBSEQUENT [facility] VISIT RHC date description facility 2020-06-12 00:00:00 First Vx - Ix admin via ID IM [facility] or jet injects without RHC counseling by physician date description facility 2020-06-12 00:00:00 Addl Vx - Ix admin via ID IM [facility] or jet injects without RHC counseling by physician date description facility 2020-06-12 00:00:00 Fluarix [facility]rivalent [facility] Intramuscular Suspension [facility] Prefilled Syringe 0.5 ML date description facility 2020-06-12 00:00:00 [facility] date description facility 2020-06-28 00:00:00 [id number] - SUBSEQUENT [facility] VISIT RHC date description facility 2020-06-28 00:00:00 [facility] date description facility 2020-07-18 00:00:00 [id number] - SUBSEQUENT [facility] V[facility] date description facility 2020-07-18 00:00:00 [facility] date description facility 2020-07-25 00:00:00 CHLAM, NEISSERIA, TRICH DNA [facility] date description facility 2020-07-25 00:00:00 [id number] - SUBSEQUENT [facility] VISIT [facility] date description facility 2020-07-25 00:00:00 GBSPCR,REFLEX [facility] date description facility 2020-07-25 00:00:00 [facility] date description facility 2020-08-01 00:00:00 [id number] - SUBSEQUENT [facility] VISIT [facility] date description facility 2020-08-01 00:00:00 [facility] date description facility 2020-08-08 00:00:00 [id number] - SUBSEQUENT [facility] VISIT [facility] date description facility 2020-08-08 00:00:00 [facility] date description facility 2020-08-15 00:00:00 [id number] - SUBSEQUENT [facility] VISIT [facility] date description facility 2020-08-15 00:00:00 [facility] Results Social History date description facility 2020-06-12 00:00:00 Former smoker [facility] date description facility 2020-06-28 00:00:00 Former smoker [facility] date description facility 2020-07-18 00:00:00 Former smoker [facility] date description facility 2020-07-25 00:00:00 Former smoker [facility] date description facility 2020-08-01 00:00:00 Former smoker [facility] date description facility 2020-08-08 00:00:00 Former smoker [facility] date description facility 2020-08-15 00:00:00 Former smoker [facility] Social History date description facility 2020-06-12 00:00:00 Former smoker [facility] date description facility 2020-06-28 00:00:00 Former smoker [facility] date description facility 2020-07-18 00:00:00 Former smoker [facility] date description facility 2020-07-25 00:00:00 Former smoker [facility] date description facility 2020-08-01 00:00:00 Former smoker [facility] date description facility 2020-08-08 00:00:00 Former smoker [facility] date description facility 2020-08-15 00:00:00 Former smoker [facility] date description facility [id number]
--- NOTE | 2020-08-31 07:49 | PROVIDER PROGRESS NOTE ---
Subjective - Subjective Subjective: Pt here 08/15/20 for IV iron transfusion Diagnosis: iron deficiency anemia, chronic
== END 2020-08-15 14:15 | disposition home or self-care (01) ==
LOC: WFO 12:24 → FBP 12:26 → WFO 14:15
PROVIDERS: ATTEND Obstetrics & Gynecology
DX: O99.019 Anemia complicating pregnancy, unspecified trimester (principal); D50.9 Iron deficiency anemia, unspecified; Z3A.00 Weeks of gestation of pregnancy not specified

== ENCOUNTER 2020-08-17 23:11 | Inpatient (IN) | payer MEDICAID ==
[2020-08-18] MEDS ORDERED: METHYLERGONOVINE 0.2 MG/ML VIAL IM PRN (01:38)
[2020-08-18] MEDS ORDERED: SODIUM CHLORIDE FLUSH 0.9% 10 ML SYRINGE IVP PRN (01:38)
[2020-08-18] MEDS ORDERED: OXYTOCIN/SODIUM CHLORIDE 500 ML IV PRN (01:38)
[2020-08-18] MEDS ORDERED: TRANEXAMIC ACID 1,000 MG in SODIUM CHLORIDE 0.9% 100ML 100 ML IV PRN (01:38)
[2020-08-18] MEDS ORDERED: LIDOCAINE-MPF 1% 30 ML VIAL ID PRN (01:38)
[2020-08-18] MEDS ORDERED: miSOPROStoL 200 MCG TABLET BC PRN (01:38)
[2020-08-18] MEDS ORDERED: OXYTOCIN 10 UNIT/ML VIAL IM PRN (01:38)
[2020-08-18] MEDS ORDERED: CARBOPROST TROMETHAMINE 250 MCG/ML AMP IM PRN (01:38)
[2020-08-18] MEDS ORDERED: ONDANSETRON 4 MG/2 ML VIAL IVP PRN ×2 (01:59→03:59)
[2020-08-18] MEDS ORDERED: LACTATED RINGERS 1,000 ML IV SCH (02:00)
[2020-08-18 02:30] LABS: BASOPHILS % (AUTO) 0.2 %; EOSINOPHILS % (AUTO) 0.1 %; HGB - HEMOGLOBIN 10.4 g/dL (12.0-16.0); LYMPHOCYTES # (AUTO) 1.2 10^3/uL (1.5-3.5); LYMPHOCYTES % (AUTO) 13.5 %; MEAN CORPUSCULAR HEMOGLOBIN 28.1 pg (27.0-31.0); MEAN CORPUSCULAR HGB CONC 32.2 g/dL (32.0-36.0); MEAN CORPUSCULAR VOLUME 87.3 fL (81.0-99.0); MEAN PLATELET VOLUME 11.7 fL (7.9-10.8); MONOCYTES # (AUTO) 0.5 10^3/uL (0.0-1.0); MONOCYTES % (AUTO) 6.3 %; NEUTROPHILS # (AUTO) 6.8 10^3/uL (1.5-6.6); NEUTROPHILS % (AUTO) 79.7 %; PLT - PLATELET COUNT 187 10^3/uL (130-450); RED CELL DISTRIBUTION WIDTH 19.3 % (12.0-15.0); WHITE BLOOD COUNT 8.6 x10^3/uL (4.8-10.8)
--- NOTE | 2020-08-18 03:58 | ANESTHESIA ---
Pre-Anesthesia VS, & Labs - Diagnosis active labor - Procedure labor epidural Vital Signs: Temp Pulse Resp BP Pulse Ox 37.1 C 106 H 18 130/82 H 100 08/18/20 02:53 08/17/20 23:22 08/17/20 23:22 08/17/20 23:22 08/17/20 23:22 Height: 5 ft 2 in Weight (kg): 62.596 kg Body Mass Index: 25.2 BMI Classification: Overweight - NPO >8 hours - Is Patient ?: Yes - Lab Results Current Lab Results: Laboratory Tests 08/18/20 02:18: Blood Type A POSITIVE, Antibody Screen NEGATIVE, Crossmatch IS Only See Detail 08/18/20 02:18: WBC 8.6, RBC 3.70 L, Hgb 10.4 L, Hct 32.3 L, MCV 87.3, MCH 28.1, MCHC 32.2, RDW 19.3 H, Plt Count 187, MPV 11.7 H, Neut # (Auto) 6.8 H, Lymph # (Auto) 1.2 L, [place] # (Auto) 0.5, Eos # (Auto) 0.0, Baso # (Auto) 0.0, Absolute Nucleated RBC 0.00, Nucleated RBC % 0.0 Fish Bones: 08/18/20 02:18 Home Medications and Allergies Active Medications Carboprost Tromethamine (Carboprost Tromethamine 250 Mcg/Ml Amp) 250 mcg IM Q15M PRN PRN Reason: Step 4: Hemorrhage protocol Stop: 08/23/20 01:40 Oxytocin/Sodium Chloride (Pitocin/Sodium Chloride) 500 mls @ 999 mls/hr IV PRN PRN; Protocol PRN Reason: POST- HEMORR PREVENTION Stop: 08/23/20 01:40 Tranexamic Acid 1,000 mg/ (Sodium Chloride) 110 mls @ 660 mls/hr IV .ONCE PRN PRN Reason: EBL >1200mL and within 3hr Stop: 08/23/20 01:40 Lactated Ringer's (Lr) 1,000 mls @ 150 mls/hr IV .Q6H40M INDU Lidocaine HCl (Lidocaine-Mpf 1% 30 Ml Vial) 30 ml ID .ONCE PRN PRN Reason: PERINEAL REPAIR Stop: 08/23/20 01:40 Methylergonovine Maleate (Methylergonovine 0.2 Mg/Ml Vial) 0.2 mg IM .ONCE PRN PRN Reason: Step 2: Hemorrhage protocol Stop: 08/23/20 01:40 Misoprostol (Misoprostol 200 Mcg Tablet) 800 mcg BC .ONCE PRN PRN Reason: Step 3: Hemorrhage protocol Stop: 08/23/20 01:40 Ondansetron HCl (Ondansetron 4 Mg/2 Ml Vial) 4 mg IVP Q4HR PRN PRN Reason: Nausea / Vomiting Last Admin: 08/18/20 02:42 Dose: 4 mg Documented by: Oxytocin (Oxytocin 10 Unit/Ml Vial) 10 unit IM .ONCE PRN PRN Reason: Step one: If no IV access Stop: 08/23/20 01:40 Sodium Chloride (Sodium Chloride Flush 0.9% 10 Ml Syringe) 10 ml IVP PRN PRN PRN Reason: NEEDED PER PROVIDER ORDERS Sodium Chloride (Sodium Chloride Flush 0.9% 10 Ml Syringe) 10 ml IVP 0100,0900,1700 INDU Allergies/Adverse Reactions: Allergies Allergy/AdvReac Type Severity Reaction Status Date / Time No Known Drug Allergies Allergy Verified 01/07/20 14:31 Anes History & Medical History - Anesthetic History Anesthesia Complications: reports: No previous complications - Medical History Smoking Status: Current every day smoker - Surgical History Eyes Ears Nose Throat (EENT): Tonsil/Adenoidectomy Exam General: Alert, Oriented x3 Dental: WNL Mouth Opening: Greater than 4 Fingerbreadths Mallampati classification: II Respiratory: Lungs clear Cardiovascular: Regular rate Plan Anesthesia Type: Epidural Consent for Procedure(s) Verified and Reviewed: Yes Code Status: Attempt Resuscitation ASA classification: 2-Mild systemic disease Is this case an emergency?: No
[2020-08-18] MEDS ORDERED: ePHEDrine 50 MG/ML VIAL IVP PRN (03:59)
[2020-08-18] MEDS ORDERED: NALBUPHINE 10 MG/ML AMP IVP PRN (03:59)
[2020-08-18] MEDS ORDERED: METOCLOPRAMIDE 10 MG/2 ML VIAL IVP PRN (03:59)
[2020-08-18] MEDS ORDERED: NALOXONE 0.4 MG/ML VIAL IVP PRN (03:59)
[2020-08-18] MEDS ORDERED: diphenhydrAMINE INJ 50 MG/ML VIAL IVP PRN (03:59)
[2020-08-18] MEDS ORDERED: ROPIVACAINE 0.2% 200 MG/100 ML BAG EP PRN (03:59)
[2020-08-18] MEDS ORDERED: fentaNYL 100 MCG/2 ML VIAL ONE (04:15)
[2020-08-18] MEDS ORDERED: LIDOCAINE-PF 2% 10 ML AMP SUBQ ONE (04:15)
--- NOTE | 2020-08-18 08:13 | HISTORY & PHYSICAL EXAMINATION ---
HPI - History of Present Illness HPI Comment/Other: CC: contractions HPI: contractions started this evening. No VB, no LOF. Good FM. PMH: iron deficiency anemia PSH: tonsils Allergies: NKDA Meds: not taking PNV or Fe as directed SH: telework. Vapes weekly. THC q3 days. No other drug or alcohol use. FOB not involved. FH: no defects ROS: no fevers or cough OB: G1=current. Dating: LMP c/w 8w US Labs: A+, RI, , hx of severe anemia, GBS neg, HSV denies Vax: s/p Tdap and flu Ultrasound: normal anatomy, 30%ile, posterior placenta PMH/PSH - Past Medical History MRSA Hx?: No - Past Surgical History HEENT: positive: Tonsil/Adenoidectomy Social & Family Hx - Social History Does the pt smoke?: Yes Smoking Status: Current every day smoker Does the pt drink ETOH?: Yes Meds/Allgy - Home Medications Home Medications: Ambulatory Orders Medication Instructions Recorded Confirmed No122/Iron/Folic Acid 1 each PO DAILY #90 tablet 12/17/19 01/07/20 [ Multi Tablet] Nitrofurantoin Monohyd/M-Cryst 100 mg PO BID #10 capsule 01/07/20 [Macrobid 100 mg Capsule] - Allergies Allergies/Adverse Reactions: Allergies Allergy/AdvReac Type Severity Reaction Status Date / Time No Known Drug Allergies Allergy Verified 01/07/20 14:31 Exam - Vital Signs Reviewed Vital Signs: Yes Vital Signs: Vital Signs x48h Temp 08/18/20 02:53 98.8 F - Physical Exam Comments/Other: O: AVSS Anxious, nervous, otherwise pain-free with epidural and NAD Complete and +2 AROM clear Category 1 NST [place] q2min Results - Lab Results Fish Bones: 08/18/20 02:18 Other Lab Results: Lab Results x24hrs 08/18/20 08/18/20 Range/Units 02:18 02:18 WBC 8.6 (4.8-10.8) x10^3/uL RBC 3.70 L (4.20-5.40) 10^6/uL Hgb 10.4 L (12.0-16.0) g/dL Hct 32.3 L (37.0-47.0) % MCV 87.3 (81.0-99.0) fL MCH 28.1 (27.0-31.0) pg MCHC 32.2 (32.0-36.0) g/dL RDW 19.3 H (12.0-15.0) % Plt Count 187 (130-450) 10^3/uL MPV 11.7 H (7.9-10.8) fL Neut # (Auto) 6.8 H (1.5-6.6) 10^3/uL Lymph # (Auto) 1.2 L (1.5-3.5) 10^3/uL [place] # (Auto) 0.5 (0.0-1.0) 10^3/uL Eos # (Auto) 0.0 (0.0-0.7) 10^3/uL Baso # (Auto) 0.0 (0.0-0.1) 10^3/uL Absolute Nucleated RBC 0.00 x10^3/uL Nucleated RBC % 0.0 /100WBC Blood Type A POSITIVE Antibody Screen NEGATIVE Crossmatch IS Only See Detail Impression/Plan - Problem List Problem List: 19yo G1 at 40w with spontaneous labor. Good labor progression, will start pushing, good pain control with epidural GBS neg Fetus reassuring: category 1, Vertex, normal anatomy scan, clear fluid, didn't do genetic testing Psychosocial: poor support, significant anxiety throughout , at high risk for PP depression, will do SW consult THC and nicotine use: peds aware : plans to express. Best with THC use not to ongoing breastfeed anyway. Iron deficiency anemia with Hct 24 in June: current Hct is 32, type and crossed for 2u, will have all hemorrhage meds in the room, is not augmented. Check iron stores PP--pt is non-compliant with oral outpatient tx.
--- NOTE | 2020-08-18 08:35 | Discharge Plan ---
Discharge Plan Problem Reviewed?: Yes Disposition: Home, Self Care Condition: Good Prescriptions: Docusate Sodium 100Mg Capsule [Colace 100Mg Capsule] 100 mg PO BID PRN #60 capsule PRN Reason: constipation Ibuprofen [Motrin] 600 mg PO Q6H PRN #30 tab PRN Reason: Pain Acetaminophen [Tylenol] 650 mg PO Q6H PRN #30 tablet PRN Reason: PRN PAIN &/OR FEVER Diet: Regular Activity Restrictions: No Restrictions Shower Restrictions: No Driving Restrictions: No Additional Instructions or Follow Up instructions: Come back to triage if you have severe upper abdominal pain, severe headache, changes in your vision, or a big change in your leg swelling. No Smoking: If you smoke, Please STOP! Call for help. Follow-up with: Michelle Yip ARNP [Provider Admit Priv/Credential] - (1w and 6w)
[2020-08-18] MEDS ORDERED: SODIUM CHLORIDE FLUSH 0.9% 10 ML SYRINGE IVP SCH (09:00)
--- NOTE | 2020-08-18 09:45 | DISCHARGE SUMMARY ---
Physician: Kim Ospina MD DATE OF ADMISSION: 08/18/2020 DATE OF DISCHARGE: NO DICTATION TD: 08/18/2020 09:10
[2020-08-18] MEDS ORDERED: SIMETHICONE CHEW 80 MG TABLET PO PRN (11:24)
[2020-08-18] MEDS ORDERED: ONDANSETRON ODT 4 MG TABLET TL PRN (11:24)
[2020-08-18] MEDS ORDERED: HYDROCORTISONE 1% CREAM 28 GM TUBE PR PRN (11:24)
[2020-08-18] MEDS ORDERED: WITCH HAZEL/GLYCERIN 1 PAD TOP PRN (11:24)
[2020-08-18] MEDS ORDERED: IBUPROFEN 600 MG TABLET PO SCH (12:00)
--- NOTE | 2020-08-18 18:12 | DELIVERY NOTE ---
Delivery Note - Labor Labor: positive: Spontaneous, Augmented by oxytocin - Delivery Method Delivery Method: positive: Vacuum assist - Presentation Presentation: positive: Vertex, VICK - left occiput anterior - Nuchal Cord Nuchal Cord: positive: None - Amniotic Fluid Description Amniotic Fluid Description: positive: Thick meconium - Vacuum Use Indication for Vacuum Use: positive: Prolonged 2nd stage Type of Vacuum Cup: positive: Cup: Mushroom Type Vacuum Extraction: positive: Successful Number of pop-offs: 2 - Episiotomy Type Episiotomy Type: positive: Midline - Laceration Laceration: positive: 2nd degree - Suture Suture Type: positive: Vicryl Suture Size: positive: 2-0, 4-0 - Delivery Outcome Delivery Outcome: positive: Livebirth - : positive: Placed in direct skin contact with mother, Suctioned, Stimulated, Warmed, [place] used, Warmer used [place] sex: positive: Male - Cord Cord: positive: 3 vessels - Placenta Placenta: positive: Intact, Spontaneous - Estimated Blood Loss Estimated Blood Loss (in cc): 175 - Post Delivery Events Post Delivery Events: positive: Shoulder dystocia - Delivery Comments (Free Text/Narrative) Delivery Comments (Free Text/Narrative): Patient arrived in spontaneous labor, received an epidural for pain control, became complete and started to push. Pushed for 1h 20min with RN. I pushed with her the remaining time. Pt with very poor expulsive efforts. Pitocin started at 2mU/min and increased to 4mU/min later. Continuous coaching given. Position changes to side lying with SI release done on each side and knock-knees as well. Very poor expulsive efforts continued. After 3h of pushing, pt was counseled that delivery was unlikely. Station had not improved beyond +2 to +3. She was offered with less risks to baby and more to mom vs. vacuum with more to baby and less to mom. Discussed risks of both, and risk of vacuum of retinal and brain hemorrhage. Questions were answered and pt chose vacuum. US revealed a VICK head. Bed broken down. Urethra attempted to catheterize but could not get around the bend of the urethra with the low station. US did not reveal a full bladder. Peds and RT in attendance. Cup applied over 4 contractions. After first contraction/first pull the cup was removed. With the 2nd and 3rd there were pop-offs. With the 4th was delivery. Suction brought up on the hand-piece to the green zone with contractions and then down to the yellow between contractions. After the 2nd popoff, a midline 2nd degree episiotomy was cut. Head was delivered. No nuchal cord. Shoulder dystocia started. 80 seconds, shoulders coming out directly transverse. Dystocia resolved with suprapubic pressure and McRobert's. Terminal meconium was encountered. Cord left pulsating for 60sec and then clamped x2 and cut. Cord blood obtained for typing. Placenta delivered intact with maternal push. Laceration repaired to restore normal anatomy.
[2020-08-18] MEDS: KETOROLAC 30 MG/ML VIAL IVP PRN (19:33)
[2020-08-18] MEDS ORDERED: DOCUSATE SODIUM 100 MG CAPSULE PO SCH (21:00)
[2020-08-19] MEDS: ACETAMINOPHEN 500 MG TABLET PO SCH ×2 (04:41→04:42)
[2020-08-19] MEDS: KETOROLAC 30 MG/ML VIAL IVP PRN ×3 (07:10→20:01)
[2020-08-19 07:57] LABS: BASOPHILS % (AUTO) 0.3 %; EOSINOPHILS % (AUTO) 0.2 %; HGB - HEMOGLOBIN 9.7 g/dL (12.0-16.0); LYMPHOCYTES # (AUTO) 1.1 10^3/uL (1.5-3.5); LYMPHOCYTES % (AUTO) 8.9 %; MEAN CORPUSCULAR HEMOGLOBIN 28.2 pg (27.0-31.0); MEAN CORPUSCULAR VOLUME 88.1 fL (81.0-99.0); MEAN PLATELET VOLUME 12.2 fL (7.9-10.8); MONOCYTES # (AUTO) 0.8 10^3/uL (0.0-1.0); MONOCYTES % (AUTO) 6.8 %; NEUTROPHILS % (AUTO) 83.5 %; PLT - PLATELET COUNT 167 10^3/uL (130-450); RED BLOOD COUNT 3.44 10^6/uL (4.20-5.40); RED CELL DISTRIBUTION WIDTH 19.9 % (12.0-15.0)
[2020-08-19 08:33] LABS: % IRON SATURATION 6 % (20-50); IRON 24 ug/dL (28-170); TOTAL IRON BINDING CAPACITY 421 ug/dL (250-450); TRANSFERRIN 301 mg/dL (192-382)
--- NOTE | 2020-08-19 09:42 | PROVIDER PROGRESS NOTE ---
Subjective - Subjective Subjective: S: Patient eating, urinating, ambulating, and well. No heavy bleeding or mood problems. Pain is under good control. Objective - Vital Signs/Intake & Output Reviewed Vital Signs: Yes Vital Signs: Vital Signs x48h Temp Pulse Resp BP Pulse Ox 08/19/20 08:23 98.1 F 94 18 112/62 97 Intake & Output: Intake & Output 08/16/20 08/17/20 08/18/20 08/19/20 23:59 23:59 23:59 23:59 Output Total 2400 Balance -2400 - Lab Results Fish Bones: 08/19/20 07:42 Other Labs: Lab Results x24hrs 08/19/20 08/19/20 Range/Units 07:42 07:42 WBC 12.0 H (4.8-10.8) x10^3/uL RBC 3.44 L (4.20-5.40) 10^6/uL Hgb 9.7 L (12.0-16.0) g/dL Hct 30.3 L (37.0-47.0) % MCV 88.1 (81.0-99.0) fL MCH 28.2 (27.0-31.0) pg MCHC 32.0 (32.0-36.0) g/dL RDW 19.9 H (12.0-15.0) % Plt Count 167 (130-450) 10^3/uL MPV 12.2 H (7.9-10.8) fL Neut # (Auto) 10.0 H (1.5-6.6) 10^3/uL Lymph # (Auto) 1.1 L (1.5-3.5) 10^3/uL Brown # (Auto) 0.8 (0.0-1.0) 10^3/uL Eos # (Auto) 0.0 (0.0-0.7) 10^3/uL Baso # (Auto) 0.0 (0.0-0.1) 10^3/uL Absolute Nucleated RBC 0.00 x10^3/uL Nucleated RBC % 0.0 /100WBC Iron 24 L (28-170) ug/dL TIBC 421 (250-450) ug/dL % Saturation 6 L (20-50) % Transferrin 301 (192-382) mg/dL - Other Results/Comments Other Results/Comments: Alert, smiling, no apparent distress Abd soft, nontender, non-distended Fundus nontender at umbilicus Trace lower extremity edema Impression/plan: 19yo P1 PPD #1 s/p VAVD at term, doing well, anticipate discharge tomorrow. Hct 30, iron deficiency persists, patient non-compliant with home po meds, will give a dose of IV iron. Social work consult planned. Has chosen to bottle feed.
[2020-08-19] MEDS ORDERED: FERRIC GLUCONATE 125 MG in SODIUM CHLORIDE 0.9% 100ML 100 ML IV ONE (10:30)
[2020-08-19] MEDS ORDERED: ACETAMINOPHEN 160 MG/5 ML SUSP UDC PO PRN (21:08)
[2020-08-20] MEDS: IBUPROFEN 100 MG/5 ML UDC PO PRN ×2 (02:19→10:47)
--- NOTE | 2020-08-20 05:40 | Discharge Plan ---
Discharge Plan Problem Reviewed?: Yes Disposition: Home, Self Care Condition: Good Prescriptions: Docusate Sodium 100Mg Capsule [Colace 100Mg Capsule] 100 mg PO BID PRN #60 capsule PRN Reason: constipation Ibuprofen [Motrin] 600 mg PO Q6H PRN #30 tab PRN Reason: Pain Acetaminophen [Tylenol] 650 mg PO Q6H PRN #30 tablet PRN Reason: PRN PAIN &/OR FEVER Diet: Regular Shower Restrictions: No Driving Restrictions: No Additional Instructions or Follow Up instructions: Nothing in the vagina for 6 weeks: No intercourse, tampons, douching Call for: -Fever greater than 100.5 -Pain that worsens over time -Heavy bleeding in which you are soaking a pad an hour for 2 hours in a row -Incisions that become hot, firm, or open -Worsening of mood, hallucinations, feeling like you want to hurt yourself or others -If one leg is swollen, hot, and tender Ok to shower, drive, and walk up stairs No Smoking: If you smoke, Please STOP! Call for help. Follow-up with: Flakito Claros MD [Provider Admit Priv/Credential] - (1w and 6w)
[2020-08-20 08:03] VITALS: BP 113/63
--- NOTE | 2020-08-20 09:22 | DISCHARGE SUMMARY ---
Physician: Kim Ospina MD DATE OF ADMISSION: 08/18/2020 DATE OF DISCHARGE: 08/20/2020 ADMISSION DIAGNOSES 1. Spontaneous labor at 40 weeks. 2. Iron deficiency anemia. 3. Anxiety. DISCHARGE DIAGNOSES 1. Status post spontaneous vaginal delivery at term. 2. Iron deficiency anemia. 3. Anxiety, improved. PROCEDURES: On 08/18/2020, vacuum-assisted vaginal delivery due to a 3-hour second stage with poor e xpulsive efforts. ESTIMATED BLOOD LOSS: 175 mL HOSPITAL COURSE: Patient was admitted, very anxious, in labor. Her anxiety improved greatly with an epidural. Despite continuous coaching her expulsive efforts were poor and she required a vacuum-ass isted vaginal delivery. She had a short shoulder dystocia with this. Her baby was average gestation al age and size. her hematocrit was 30 and her iron stores were low and patient was given a dose of IV iron. Her anxiety persisted in being improved throughout her hospitalization. She use d THC during her and received a social work consult. By day 2, she was requesti ng discharge home. She was eating, ambulating, and urinating without difficulty. She did not have a ny heavy bleeding or mood problems. Her pain was under good control. She had chosen to bottle feed and her breasts were doing okay. PHYSICAL EXAMINATION GENERAL: She is afebrile with normal vital signs. Alert and cuddling her baby in no apparent distre ss. ABDOMEN: Soft, nontender, nondistended. Fundus firm, nontender at the umbilicus. EXTREMITIES: There was no lower extremity clubbing, cyanosis or edema. DISCHARGE DISPOSITION: Home. CONDITION: Good. FOLLOWUP: At 1 week and 6 weeks with the [facility]. MEDICATIONS 1. Liquid ibuprofen and iron given to this patient who is "unable" to swallow pills. 2. Colace given in case she is able to swallow the pills. PRECAUTIONS: Routine. TD: 08/20/2020 06:07
--- NOTE | 2020-08-20 13:56 | Labor Flowsheet ---
Labor Flowsheet Datetime Report Generated by CPN: 08/20/2020 13:55 Datetime: 08/20/2020 11:56 VITAL SIGNS NBP Sys/Rosio/Mean (mmHg): 113 : 63 : 74 Pulse: 72 Datetime: 08/20/2020 11:55 SpO2 (%): 97 Datetime: 08/18/2020 15:00 Stage of : Recovery Datetime: 08/18/2020 14:00 PAIN Pain Scale: 0 Pain Presence: None/Denies Pain Assessment Comments: Refuses pain medications Datetime: 08/18/2020 12:38 Membranes Ruptured Date/Time: 08/18/2020 08:02 Amniotic Fluid Color: Clear Amniotic Fluid Odor: Normal Datetime: 08/18/2020 12:17 I/O Interventions: Straight Cath (ml) @ 800 Datetime: 08/18/2020 11:25 LaborFlag: Labor Datetime: 08/18/2020 11:03 Medication Comments: Pitocin bolus started Datetime: 08/18/2020 10:59 UTERINE ACTIVITY Monitor Mode: External Frequency (min): 1-3 Quality: Moderate Duration (sec): 60-120 Pattern: Normal: <= 5 Contractions in 10 Minutes Resting Tone (Palpate): Relaxed ASSESSMENT A Monitor Mode: External US FHR Baseline Rate : 135 Variability: Moderate 6-25 bpm Accelerations: 15X15 Decelerations: Variable Category: Category II Datetime: 08/18/2020 10:42 Patient Care Comments: Dr. Ashraf @ bedside Datetime: 08/18/2020 10:36 Pushing Position: Pushing Lithotomy Pushing Progress: Ineffective Pushing Datetime: 08/18/2020 10:21 Patient Position/Activity: Semi-Fowlers Datetime: 08/18/2020 10:15 MEDICATIONS Pitocin (milliunits): Increased to @ 4 Datetime: 08/18/2020 10:00 PATIENT CARE IV/Blood Work: IV Bolus Given ml @ 250; IV Infusing per Order; New IV Bag Hung Datetime: 08/18/2020 08:10 STAGE 2 Pushing: Coached on Pushing Stage 2 Comments: begin pushing w/RN Datetime: 08/18/2020 08:02 Membrane Status: Ruptured Membranes Rupture Method: Artificial Amniotic Fluid Amount: None Datetime: 08/18/2020 08:00 Comments: interrupted tracing d/t maternal repositioning in bed. Datetime: 08/18/2020 07:57 Communication Comments: Dr. Anai @ bedside Datetime: 08/18/2020 07:51 COMMUNICATION Provider Notified (Name): Dr. Anai Datetime: 08/18/2020 07:46 VAGINAL EXAM Dilatation (cm): 10.0 Effacement (%): 100 Station: 2 Exam by: H Waterloo RN Datetime: 08/18/2020 05:00 Anesthesia Level Check: T10- Umbilicus Datetime: 08/18/2020 04:51 Temperature (C): 36.5 Datetime: 08/18/2020 04:27 Pain Type: Pressure Vaginal Bleeding: Normal Show Cervix, Consistency: Soft Cervix, Position: Anterior Datetime: 08/18/2020 04:24 Contraction Comments: toco adjusted Datetime: 08/18/2020 04:16 Antiemetics/Antacids: Zofran (mg) @ 4 Datetime: 08/18/2020 04:10 Anesthesia Comments: bolus by anesthesia provider of lidocain and fentanyl to epidural catheter. se e anesthesia documentation. Datetime: 08/18/2020 03:30 Epidural Procedure: Test Dose Datetime: 08/18/2020 03:18 ANESTHESIA Anesthesia Plans: Epidural
--- OUTSIDE RECORDS SUMMARY | 2020-08-23 01:23 | EXTERNAL MEDICAL SUMMARY RPT | Continuity of Care Document ---
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 Unavailable Problems date description facility 2020-02-21 13:40 PROC/TRTMT NOT CRD OUT D/T PT [facility] LV BEF SEEN BY [facility] 2020-04-04 07:00 SUPRVSN OF HIGH RISK PREG DUE [facility] TO SOCIAL PROBLEMS, UNSP TRI 2020-04-04 07:00 ENCOUNTER FOR OTHER SPECIFIED [facility] SCREENING 2020-04-04 10:54 SUPRVSN OF HIGH RISK PREG DUE [facility] TO SOCIAL PROBLEMS, UNSP TRI 2020-04-04 10:54 ENCOUNTER FOR OTHER SPECIFIED [facility] SCREENING 2020-05-10 07:44 SUPRVSN OF HIGH RISK PREG DUE [facility] TO SOCIAL PROBLEMS, SECOND TRI 2020-05-10 07:44 24 WEEKS GESTATION OF [facility] 2020-06-12 00:00:00 [facility] 2020-06-12 00:00:00 Tobacco [facility] and exposure [facility] 2020-06-12 00:00:00 Details of [facility] behavior [facility] 2020-06-12 [...] 2020-07-18 00:00:00 Uterine size date discrepancy, [facility] antepartum condition or [facility] complication 2020-07-18 00:00:00 US OB LIMITED [facility] 2020-07-18 00:00:00 [facility] size-date [facility] third trimester R[facility] 2020-07-18 00:00:00 [facility]related [facility] 2020-07-18 00:00:00 Tobacco use and exposure [facility] 2020-07-18 00:00:00 Details of drug misuse [facility] behavior [facility] 2020-07-18 00:00:00 Uterine size for dates [facility] discrepancy RHC 2020-07-18 00:00:00 Alcohol use [facility] 2020-07-18 00:00:00 Tobacco smoking status NHIS [facility] 2020-07-18 00:00:00 Total score? [facility] 2020-07-18 00:00:00 Former smoker [facility] 2020-07-24 00:00:00 OB US FOLLOW-UP [facility] 2020-07-25 00:00 SUPRVSN OF HIGH RISK PREG DUE [facility] TO SOCIAL PROBLEMS, UNSP TRI 2020-07-25 00:00:00 Iron & TIBC [facility] 2020-07-25 00:00:00 CHLAM, NEISSERIA, TRICH DNA [facility] 2020-07-25 00:00:00 Ferritin [facility] 2020-07-25 00:00:00 CBC AND PLATELETS w/o DIFF [facility] 2020-07-25 00:00:00 GBSPCR,REFLEX IF PEN ALLERGIC [facility] 2020-07-25 00:00:00 [facility] 2020-07-25 00:00:00 Tobacco use and exposure [facility] 2020-07-25 00:00:00 Details of drug misuse [facility] behavior RHC 2020-07-25 00:00:00 Alcohol use [facility] 2020-07-25 00:00:00 Tobacco smoking status NHIS [facility] 2020-07-25 00:00:00 Total score? [facility] 2020-07-25 00:00:00 Former smoker [facility] 2020-07-25 11:30 SUPRVSN OF HIGH RISK PREG DUE [facility] TO SOCIAL PROBLEMS, UNSP TRI 2020-08-01 00:00:00 [...] CPV behavior RHC 2020-08-15 00:00:00 [facility] 2020-08-15 00:00:00 Tobacco smoking status [facility] 2020-08-15 00:00:00 Total score? [facility] 2020-08-15 00:00:00 [facility] Allergies date description facility ADHESIVE \T\ [facility]AN [facility] CODE[facility] IRON [facility] LEVOFLOXACIN [facility] LISINOPRIL [facility] SPIRONOLACTONE [facility] SULFAMETHOXAZOLE W/TRIMETHOPRIM [facility] (CO-TRIMOXAZOLE) TEMAZEPAM [facility] [id number] [facility] ANTIHISTAMINES, LORATADINE-TYPE [facility] NO KNOWN ENVIRONMENTAL ALLERGIES [facility] SULFA ANTIBIOTICS [facility] NO ALLERGY INFORMATION ON FILE [facility] NO KNOWN ALLERGIES [facility] LATEX, NATURAL RUBBER [facility] COCONUT OIL [facility] MORPHINE [facility] CODEINE [facility] MEPERIDINE [facility] HYDROMORPHONE [facility] MELATONIN [facility] ALENDRONATE [facility] OXYCODONE-ASPIRIN [facility] No Known Drug Allergies [facility] Medications date description facility 2020-06-12 00:00:00 null [facility] 2020-06-12 00:00:00 null [facility] 2020-06-12 00:00:00 MISC. DEVICES [facility] 2020-06-12 00:00:00 [...] facility 2020-06-12 00:00:00 [id number] - SUBSEQUENT [facility] VISIT RHC date description facility 2020-06-12 00:00:00 First Vx - Ix admin via ID IM [facility] or jet injects without RHC counseling by physician date description facility 2020-06-12 00:00:00 Addl Vx - Ix admin via ID IM [facility] or jet injects without RHC counseling by physician date description facility 2020-06-12 00:00:00 Fluarix [facility]rivalent [facility] Intramuscular Suspension [facility] Prefilled Syringe 0.5 ML date description facility 2020-06-12 00:00:00 [facility] date description facility 2020-06-28 00:00:00 [id number] - SUBSEQUENT [facility] VISIT RHC date [...] facility 2020-07-25 00:00:00 GBSPCR,REFLEX IF PEN ALLERGIC [facility] R[facility] date [...] n's Care CPV RHC date description facility [id number]
== END 2020-08-20 13:25 | disposition home or self-care (01) | DRG 806 ==
LOC: WFO 23:11 → FBP 23:13 → WFO 08-18 01:37 → FBP 08-18 01:38
PROVIDERS: ADMIT Obstetrics & Gynecology; ATTEND Obstetrics & Gynecology
PROC: 10D07Z6 Extraction of Products of Conception, Vacuum, Via Natural or Artificial Opening (ICD-10-PCS; principal; 2020-08-18)
PROC: 0KQM0ZZ Repair Perineum Muscle, Open Approach (ICD-10-PCS; 2020-08-18)
PROC: 0W8NXZZ Division of Female Perineum, External Approach (ICD-10-PCS; 2020-08-18)
DX: O99.02 Anemia complicating childbirth (principal); O99.324 Drug use complicating childbirth; Z37.0 Single live birth; D50.9 Iron deficiency anemia, unspecified; O99.334 Smoking (tobacco) complicating childbirth; F17.290 Nicotine dependence, other tobacco product, uncomplicated; F12.90 Cannabis use, unspecified, uncomplicated; O66.0 Obstructed labor due to shoulder dystocia; O70.1 Second degree perineal laceration during delivery; O77.0 Labor and delivery complicated by meconium in amniotic fluid; Z3A.40 40 weeks gestation of pregnancy; O99.344 Other mental disorders complicating childbirth; F41.9 Anxiety disorder, unspecified; O9A.22 Injury, poisoning and certain other consequences of external causes complicating childbirth; T45.4X6A Underdosing of iron and its compounds, initial encounter; Z91.128 Patient's intentional underdosing of medication regimen for other reason; Y92.9 Unspecified place or not applicable; O63.1 Prolonged second stage (of labor)
CPT/HCPCS: 83540; 84466; 85025; 86850; 86900; 86901; 86920; 99213; A9270; J2916; J7120

== ENCOUNTER 2021-03-08 11:44 | Emergency (ER) | payer MEDICAID ==
--- NOTE | 2021-03-08 11:58 | ED Physician Documentation ---
History of Present Illness - Stated complaint Stated Complaint: COVID EXPOSURE - History obtained from History obtained from: Patient - Additonal information Additional information: Patient reports being exposed to a family member and a friend who are both positive for Covid yesterday. She states neither 1 have any symptoms. Patient denies symptoms. She is here as a precaution. Patient is not vaccinated. Review of Systems Ten Systems: 10 systems reviewed and negative Constitutional: reports: Reviewed and negative Eyes: reports: Reviewed and negative Ears: reports: Reviewed and negative Nose: reports: Reviewed and negative Throat: reports: Reviewed and negative Cardiac: reports: Reviewed and negative Respiratory: reports: Reviewed and negative GI: reports: Reviewed and negative : reports: Reviewed and negative Skin: reports: Reviewed and negative Musculoskeletal: reports: Reviewed and negative Neurologic: reports: Reviewed and negative Psychiatric: reports: Reviewed and negative Endocrine: reports: Reviewed and negative Immunocompromised: reports: Reviewed and negative PD PAST MEDICAL HISTORY - Past Surgical History Past Surgical History: Yes HEENT: Tonsil/Adenoidectomy - Present Medications Home Medications: Ambulatory Orders Medication Instructions Recorded Confirmed No122/Iron/Folic Acid 1 each PO DAILY #90 tablet 12/17/19 01/07/20 [ Multi Tablet] Nitrofurantoin Monohyd/M-Cryst 100 mg PO BID #10 capsule 01/07/20 [Macrobid 100 mg Capsule] Acetaminophen [Tylenol] 650 mg PO Q6H PRN #30 tablet 08/18/20 Docusate Sodium 100Mg Capsule 100 mg PO BID PRN #60 capsule 08/18/20 [Colace 100Mg Capsule] Ibuprofen [Motrin] 600 mg PO Q6H PRN #30 tab 08/18/20 - Allergies Allergies/Adverse Reactions: Allergies Allergy/AdvReac Type Severity Reaction Status Date / Time No Known Drug Allergies Allergy Verified 03/08/21 12:04 - Social History Does the pt smoke?: Yes Smoking Status: Current every day smoker Does the pt drink ETOH?: Yes - Immunizations Immunizations are current?: Yes PD ED PE NORMAL - Vitals Vital signs reviewed: Yes - General General: Alert and oriented X 3, No acute distress - HEENT HEENT: PERRL - Neck Neck: Supple, no meningeal sign - Cardiac Cardiac: RRR, No murmur - Respiratory Respiratory: No respiratory distress, Clear bilaterally - Abdomen Abdomen: Soft, Non tender, Non distended - Derm Derm: Warm and dry - Extremities Extremities: No deformity - Neuro Neuro: Alert and oriented X 3 - Psych Psych: Normal mood, Normal affect Results - Vitals Vitals: Vital Signs - 24 hr 03/08/21 11:56 Temperature 36.5 C Heart Rate 72 Respiratory 16 Rate Blood Pressure 132/68 H O2 Saturation 99 Oxygen O2 Source Room air PD MEDICAL DECISION MAKING - ED course Complexity details: considered differential, d/w patient ED course: Patient was asymptomatic and well-appearing. She was tested for Covid and advised to quarantine until she gets results back. She is advised to come to medical records at the hospital to have her results released. Departure - Departure Disposition: 01 Home, Self Care Clinical Impression: Exposure to COVID-19 virus Condition: Stable Instructions: COVID-19 [facility] Comments: You have been tested for Covid today. Your results will be back tomorrow morning. Please check back with medical records to find out your results. In the meantime, quarantine until you have received a negative Covid result Discharge Date/Time: 03/08/21 12:11
[2021-03-08 12:01] VITALS: BP 132/68
== END 2021-03-08 12:11 | disposition home or self-care (01) ==
LOC: ED 11:44
DX: Z20.822 Contact with and (suspected) exposure to COVID-19 (principal); F17.200 Nicotine dependence, unspecified, uncomplicated
CPT/HCPCS: 99281; 99283

== ENCOUNTER 2021-06-22 11:35 | Emergency (ER) | payer MEDICAID ==
[2021-06-22 11:49] VITALS: BP 117/75
[2021-06-22] MEDS ORDERED: KETOROLAC 30 MG/ML VIAL IM STA (11:59)
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
[2021-06-22 12:21] LABS: BILIRUBIN,URINE NEGATIVE (NEGATIVE); GLUCOSE, URINE (UA) NEGATIVE (NEGATIVE); KETONES,URINE (UA) NEGATIVE (NEGATIVE); LEUKOCYTE ESTERASE, URINE NEGATIVE (NEGATIVE); NITRITE,URINE NEGATIVE (NEGATIVE); OCCULT BLOOD,URINE NEGATIVE (NEGATIVE); PROTEIN,URINE NEGATIVE (NEGATIVE); UROBILINOGEN,URINE 0.2 (NORMAL) E.U./dL (NORMAL)
[2021-06-22 12:27] LABS: CLARITY,URINE CLEAR (CLEAR); HCG UR QUAL NEGATIVE
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
== END 2021-06-22 13:53 | disposition home or self-care (01) ==
LOC: ED 11:35
DX: S06.0X0A Concussion without loss of consciousness, initial encounter (principal); V43.52XA Car driver injured in collision with other type car in traffic accident, initial encounter; Y92.411 Interstate highway as the place of occurrence of the external cause; J34.2 Deviated nasal septum; F17.290 Nicotine dependence, other tobacco product, uncomplicated
CPT/HCPCS: 81001; 81003; 81025; 87086; 96372; 99282; 99284

== ENCOUNTER 2021-08-29 11:22 | Emergency (ER) | payer MEDICAID ==
--- NOTE | 2021-08-29 15:43 | ED Physician Documentation ---
History of Present Illness - Stated complaint Stated Complaint: R FT NUMB - Chief complaint Chief Complaint: Ext Problem - Additonal information Additional information: 20-year-old female presents the emergency department for evaluation of numbness on her foot that began about 1 week ago when she woke up. She reports that she has barely any sensation on the top of the foot as well as the lateral side. No falls or trauma. No foot or leg swelling no history of similar in the past. She does endorse chronic back pain but no worsening symptoms over the last few months. She did travel to [place] in July. Review of Systems Constitutional: reports: Reviewed and negative Nose: reports: Reviewed and negative Throat: reports: Reviewed and negative Cardiac: reports: Reviewed and negative Respiratory: reports: Reviewed and negative GI: reports: Reviewed and negative : reports: Reviewed and negative Neurologic: reports: Numbness (right foot) PD PAST MEDICAL HISTORY - Past Surgical History Past Surgical History: Yes HEENT: Tonsil/Adenoidectomy - Allergies Allergies/Adverse Reactions: Allergies Allergy/AdvReac Type Severity Reaction Status Date / Time No Known Drug Allergies Allergy Verified 08/29/21 11:44 - Social History Does the pt smoke?: Yes Smoking Status: Current every day smoker Does the pt drink ETOH?: Yes Substance Use and Type: Marijuana - Immunizations Immunizations are current?: Yes - POLST Patient has POLST: No PD ED PE NORMAL - General General: Alert and oriented X 3, No acute distress - HEENT HEENT: PERRL - Cardiac Cardiac: RRR, No murmur - Respiratory Respiratory: Clear bilaterally - Abdomen Abdomen: Normal bowel sounds, Soft, Non tender, Non distended - Back Back: No CVA TTP, No spinal TTP - Derm Derm: Normal color - Neuro Neuro: Alert and oriented X 3, blocker hand 2-12 intact. No: No sensory deficit (Numbness to the dorsum of the right foot and medial side. She does have preserved two-point discrimination. Normal pulse. Warm foot. Normal gait.) Results - Vitals Vitals: Vital Signs - 24 hr 08/29/21 08/29/21 11:40 13:36 Temperature 36.4 C L Heart Rate 91 94 Respiratory 16 Rate Blood Pressure 126/69 125/75 O2 Saturation 100 100 Oxygen O2 Source Room air - Labs Labs: Laboratory Tests 08/29/21 15:40 Sodium 137 Potassium 3.8 Chloride 101 Carbon Dioxide 27 Anion Gap 9.0 BUN 13 Creatinine 0.8 Estimated GFR (MDRD) 91 Glucose 92 Calcium 9.4 - Rads (name of study) US DVT Radiology: Final report received (No deep vein thrombus seen in the right lower extremity.) PD MEDICAL DECISION MAKING - ED course Complexity details: reviewed results, re-evaluated patient, d/w patient ED course: 20-year-old female presents emergency department with 1 week of numbness on the top of her right foot. She reports a history of chronic back pain but no current exacerbation. No red flags. Unremarkable exam of the back and normal gait today. Screening labs show no worrisome electrolyte abnormality. Ultrasound did not show a deep vein thrombosis. Because of her right foot numbness is not clear though she is advised to have very close follow-up with her primary care provider. The foot is not swollen hot or fevers therefore infection is considered less likely. Departure - Departure Disposition: 01 Home, Self Care Clinical Impression: Numbness of right foot Condition: Stable Record reviewed to determine appropriate education?: Yes Comments: You are seen in the ER today for about 1 week of right foot numbness. The ultrasound of your leg did not show a clot. Your screening electrolytes were unremarkable. I do recommend close follow-up with your primary care doctor for longer-term evaluation of the foot numbness. You may benefit from further evaluation of your back pain with an MRI as sometimes disc herniation or compression of the nerves in the back can cause foot numbness.
[2021-08-29 15:58] LABS: CALCIUM 9.4 mg/dL (8.5-10.3); CREATININE 0.8 mg/dL (0.4-1.0); POTASSIUM 3.8 mmol/L (3.5-5.0)
--- NOTE | 2021-08-29 16:45 | Ultrasound Report ---
PROCEDURE: Duplex Ext Veins Right INDICATIONS: numbness in right foot TECHNIQUE: Real-time imaging, as well as color and pulse Doppler interrogation, were performed of the lower extr emity deep veins from the inguinal ligament to the popliteal fossa. COMPARISON: None. FINDINGS: The deep veins are normally compressible, and free of intraluminal thrombus. Color and pu lse Doppler demonstrate normal phasic intraluminal flow. There is normal augmentation response to di stal compression maneuver. IMPRESSION: No evidence of deep vein thrombosis involving the right lower extremity. Reviewed by: Ro Galeana MD, PhD on 08/29/2021 3:44 PM [facility] Approved by: Ro Galeana MD, PhD on 08/29/2021 3:44 PM [facility] Station ID: [id number]
[2021-08-29 16:59] VITALS: BP 111/73
== END 2021-08-29 17:01 | disposition home or self-care (01) ==
LOC: ED 11:22
DX: R20.0 Anesthesia of skin (principal); F17.200 Nicotine dependence, unspecified, uncomplicated
CPT/HCPCS: 36415; 80048; 99282; 99284

== ENCOUNTER 2021-10-10 12:03 | Outpatient (CLI) | payer MEDICAID | END 2021-10-10 12:04 | disposition EMS.NT | LOC: EMS 12:03 | DX: R10.9 Unspecified abdominal pain (principal); R11.2 Nausea with vomiting, unspecified; R06.02 Shortness of breath; R53.83 Other fatigue ==

== ENCOUNTER 2021-10-31 16:54 | Outpatient (CLI) | payer OTHER ==
[2021-10-31 23:02] LABS: CHLAMYDIA TRACHOMATIS DNA NEGATIVE (NEGATIVE); NEISSERIA GONORRHOEAE DNA NEGATIVE (NEGATIVE); TRICHOMONAS VAGINALIS DNA NEGATIVE (NEGATIVE)
== END 2021-10-31 16:55 | disposition home or self-care (01) ==
LOC: LAB.R 16:54
PROVIDERS: ATTEND Registered Nurse
DX: A56.2 Chlamydial infection of genitourinary tract, unspecified (principal); R82.79 Other abnormal findings on microbiological examination of urine
CPT/HCPCS: 87491; 87591; 87661

== ENCOUNTER 2021-11-17 10:22 | Emergency (ER) | payer MEDICAID, OTHER ==
[2021-11-17 10:28] VITALS: BP 121/69
--- NOTE | 2021-11-17 10:29 | ED Physician Documentation ---
History of Present Illness - Stated complaint Stated Complaint: FEMALE - Chief complaint Chief Complaint: General - History obtained from History obtained from: Patient - History of Present Illness Timing: Today Pain level max: 0 Pain level now: 0 - Additonal information Additional information: 21-year-old female states that she took a test 2 days ago and wants to know how far along she is. Has no complaints. No vaginal bleeding. No abdominal pain. No pelvic pain. LMP was about 2 months ago. 2 para 1. Patient is requesting a paternity test Review of Systems Constitutional: denies: Fever, Chills GI: denies: Nausea, Vomiting, Diarrhea : denies: Dysuria Skin: denies: Rash Musculoskeletal: denies: Neck pain, Back pain Neurologic: denies: Headache PD PAST MEDICAL HISTORY - Past Medical History Past Medical History: No - Past Surgical History Past Surgical History: Yes HEENT: Tonsil/Adenoidectomy - Allergies Allergies/Adverse Reactions: Allergies Allergy/AdvReac Type Severity Reaction Status Date / Time No Known Drug Allergies Allergy Verified 11/17/21 10:28 - Social History Does the pt smoke?: Yes Smoking Status: Current every day smoker Does the pt drink ETOH?: Yes - Immunizations Immunizations are current?: Yes - POLST Patient has POLST: No PD ED PE NORMAL - Vitals Vital signs reviewed: Yes - General General: Alert and oriented X 3, No acute distress - HEENT HEENT: Moist mucous membranes - Neck Neck: Supple, no meningeal sign - Cardiac Cardiac: RRR - Respiratory Respiratory: No respiratory distress, Clear bilaterally - Abdomen Abdomen: Soft, Non tender, Non distended - Derm Derm: Warm and dry - Neuro Neuro: Alert and oriented X 3 - Psych Psych: Normal mood, Normal affect Results - Vitals Vitals: Vital Signs - 24 hr 11/17/21 10:26 Temperature 36.6 C Heart Rate 98 Respiratory 16 Rate Blood Pressure 121/69 O2 Saturation 100 Oxygen O2 Source Room air PD MEDICAL DECISION MAKING - ED course Complexity details: considered differential, d/w patient ED course: Bedside ultrasound reveals an intrauterine , approximately 7 weeks and 3 days EGA. heart rate present. Images shown to the patient. She will follow up with OB for further care. The patient informed that paternity testing not possible at this time and that the ER does not do paternity testing. Patient counseled regarding signs and symptoms for which I believe and urgent re-evaluation would be necessary. Patient with good understanding of and agreement to plan and is comfortable going home at this time This document was made in part using voice recognition software. While efforts are made to proofread this document, sound alike and grammatical errors may occur. Departure - Departure Disposition: 01 Home, Self Care Clinical Impression: Intrauterine Condition: Good Instructions: ED Preg Established Normal Sxs Follow-Up: [facility] [Provider Group] Comments: Please follow-up with OB for further care. Would recommend you start on vitamins. Please return if you worsen. You appear to be approximately 7 weeks and 2 days along.
== END 2021-11-17 10:47 | disposition home or self-care (01) ==
LOC: ED 10:22
DX: Z02.81 Encounter for paternity testing (principal); O99.330 Smoking (tobacco) complicating pregnancy, unspecified trimester; F17.200 Nicotine dependence, unspecified, uncomplicated; Z3A.00 Weeks of gestation of pregnancy not specified
CPT/HCPCS: 99281; 99282